=== PATIENT | female | born 1960 | race Hispanic/Latino ===

== ENCOUNTER 2017-05-13 11:44 | Emergency (ER) | payer OTHER ==
[2017-05-13 11:49] VITALS: BMI 32.4
--- NOTE | 2017-05-13 13:17 | RAD ---
HISTORY: Sepsis Patient COMPARISON: Chest radiograph dated 10/06/2009 FINDINGS: LUNGS: No active pulmonary disease. PLEURA: No significant pleural effusion identified, no pneumothorax apparent. CARDIOVASCULAR: Normal. OSSEOUS STRUCTURES: Unchanged. VISUALIZED UPPER ABDOMEN: Right upper quadrant surgical clips. OTHER FINDINGS: None. IMPRESSION: No active disease.
[2017-05-13 13:57] LABS: SQUAMOUS EPITHIAL 4 /hpf (0-5); URINE BACTERIA RARE (<OCC); URINE BILIRUBIN NEGATIVE (NEGATIVE); URINE BLOOD NEGATIVE (NEGATIVE); URINE CLARITY SLIGHTY-CLOUDY (Clear); URINE COLOR YELLOW (YELLOW); URINE GLUCOSE (UA) NEG (Normal); URINE LEUKOCYTE ESTERASE NEG Leu/uL (Negative); URINE NITRATE NEGATIVE (NEGATIVE); URINE PROTEIN NEGATIVE (NEGATIVE); URINE UROBILINOGEN 0.2-1.0 mg/dL (0.2-1.0)
[2017-05-13 15:06] LABS: BASO % 0.6 % (0.0-2.0); EOS % 0.2 % (0.0-4.0); HEMOGLOBIN 12.5 g/dL (12.0-16.0); LYMPH # 0.7 K/uL (1.0-4.3); LYMPH % 14.9 % (20.0-40.0); MEAN CORPUSCULAR HGB CONC 32.3 g/dL (33.0-37.0); MEAN PLATELET VOLUME 9.4 fl (7.2-11.7); MONO # 0.7 K/uL (0.0-0.8); MONO % 15.3 % (0.0-10.0); NEUT # 3.3 K/uL (1.8-7.0); NRBC % 0.1 % (0.0-0.0); RBC 4.32 Mil/uL (3.80-5.20); RED CELL DISTRIBUTION WIDTH 14.1 % (11.5-14.5); WHITE BLOOD COUNT 4.8 K/uL (4.8-10.8)
[2017-05-13] MEDS: Sodium Chloride 0.9% 1,000 ML IV STA (15:14)
[2017-05-13 15:21] LABS: ALB/GLOB RATIO 1.1 (1.0-2.1); ALBUMIN 4.1 g/dL (3.5-5.0); ALT/SGPT 61 U/L (9-52); AST/SGOT 37 U/L (14-36); BLOOD UREA NITROGEN 12 mg/dl (7-17); CALCIUM 9.6 mg/dL (8.4-10.2); GFR AFRICAN-AMERICAN > 60; GFR NON-AFRICAN AMERICAN > 60
--- NOTE | 2017-05-13 16:47 | ED PDOC ---
HPI: CCC, URI, Sore Throat Time Seen by Provider: 05/13/17 12:26 Chief Complaint (Nursing): Cough, Cold, Congestion Chief Complaint (Provider): upper resp. infection History Per: Patient History/Exam Limitations: no limitations Additional Complaint(s): 56yo F in ED for eval of Upper resp infection-states for past 1-2 days with fever, body aches non-productive cough headache ear pain . hx of breast CA, HTN, DM. denies foreign travel, negative for influa/b vaccination. Past Medical History Reviewed: Historical Data, Nursing Documentation, Vital Signs Vital Signs: Last Vital Signs Temp 100.2 F H 05/13/17 15:24 Pulse 87 05/13/17 15:24 Resp 16 05/13/17 15:24 BP 122/72 05/13/17 15:24 Pulse Ox 96 05/13/17 15:24 - Medical History PMH: HTN, Hyperlipidemia - Family History Family History: States: No Known Family Hx - Home Medications Home Medications: Ambulatory Orders Medication Instructions Recorded Ibuprofen [Motrin] 600 mg PO Q6 PRN #20 tab 08/23/14 Ibuprofen [Motrin] 400 mg PO Q6 #30 tab 05/13/17 Oseltamivir Phosphate [Tamiflu] 75 mg PO BID #10 capsule 05/13/17 - Allergies Allergies/Adverse Reactions: Allergies Allergy/AdvReac Type Severity Reaction Status Date / Time No Known Allergies Allergy Verified 08/23/14 09:17 Curb-65 Severity Score - CURB-65 Severity Score Confusion: No Bun >19mg/dl (>7mmol/L): No Respiratory Rate greater than/equal to 30: No Systolic BP <90 or Diastolic BP less than/equal 60mmHg: No Age >64: No Curb-65 Score: 0 Percentage 30-day mortality: 0.6% Review of Systems ROS Statement: Except As Marked, All Systems Reviewed And Found Negative Constitutional: Positive for: Fever, Chills, Malaise ENT: Positive for: Ear Pain, Nose Pain, Nose Congestion Gastrointestinal: Positive for: Abdominal Pain. Negative for: Nausea, Vomiting Physical Exam - Reviewed Nursing Documentation Reviewed: Yes Vital Signs Reviewed: Yes - Physical Exam Appears: Positive for: Non-toxic, No Acute Distress, Uncomfortable Head Exam: Positive for: ATRAUMATIC, NORMAL INSPECTION, NORMOCEPHALIC Skin: Positive for: Warm Eye Exam: Positive for: EOMI, Normal appearance, PERRL ENT: Positive for: TM Is/Are (NAD), Pharyngeal Erythema. Negative for: Tonsillar Exudate, Tonsillar Swelling Neck: Positive for: Normal, Painless ROM Cardiovascular/Chest: Positive for: Regular Rate, Rhythm Respiratory: Positive for: CNT, Normal Breath Sounds Gastrointestinal/Abdominal: Positive for: Normal Exam, Bowel Sounds, Soft. Negative for: Tenderness Extremity: Negative for: Swelling Lymphatic: Positive for: Adenopathy Neurologic/Psych: Positive for: Alert, Oriented - Laboratory Results Result Diagrams: 05/13/17 14:55 05/13/17 14:50 - ECG O2 Sat by Pulse Oximetry: 96 - Radiology X-Ray: Read By Radiologist - Progress ED Course And Treament: 05/13/17 05/13/17 05/13/17 15:00 14:55 14:50 WBC 4.8 D RBC 4.32 Hgb 12.5 Hct 38.9 MCV 90.0 D MCH 29.0 MCHC 32.3 L RDW 14.1 Plt Count 251 MPV 9.4 Neut % (Auto) 69.0 Lymph % (Auto) 14.9 L [place] % (Auto) 15.3 H Eos % (Auto) 0.2 Baso % (Auto) 0.6 Neut # 3.3 Lymph # 0.7 L [place] # 0.7 Eos # 0.0 Baso # 0.0 Sodium 138 Potassium 3.2 L Chloride 93 L Carbon Dioxide 32 H Anion Gap 16 BUN 12 Creatinine 0.9 Est GFR ( Amer) > 60 Est GFR (Non-Af Amer) > 60 Random Glucose 114 H Calcium 9.6 Total Bilirubin 0.4 AST 37 H ALT 61 H Alkaline Phosphatase 91 Total Protein 7.7 Albumin 4.1 Globulin 3.6 Albumin/Globulin Ratio 1.1 Urine Color Urine Clarity Urine pH Ur Specific [place]onson Urine Protein Urine Glucose (UA) Urine Ketones Urine Blood Urine Nitrate Urine Bilirubin Urine Urobilinogen Ur Leukocyte Esterase Urine RBC (Auto) Urine Microscopic WBC Ur Squamous Epith Cells Urine Bacteria Influenza Typ A,B (EIA) Pos for influenza a H 05/13/17 13:43 WBC RBC Hgb Hct MCV MCH MCHC RDW Plt Count MPV Neut % (Auto) Lymph % (Auto) [place] % (Auto) Eos % (Auto) Baso % (Auto) Neut # Lymph # [place] # Eos # Baso # Sodium Potassium Chloride Carbon Dioxide Anion Gap BUN Creatinine Est GFR ( Amer) Est GFR (Non-Af Amer) Random Glucose Calcium Total Bilirubin AST ALT Alkaline Phosphatase Total Protein Albumin Globulin Albumin/Globulin Ratio Urine Color Yellow Urine Clarity Slighty-cloudy Urine pH 5.0 Ur Specific [place]onson 1.012 Urine Protein Negative Urine Glucose (UA) Neg Urine Ketones Negative Urine Blood Negative Urine Nitrate Negative Urine Bilirubin Negative Urine Urobilinogen 0.2-1.0 Ur Leukocyte Esterase Neg Urine RBC (Auto) 3 Urine Microscopic WBC 1 Ur Squamous Epith Cells 4 Urine Bacteria Rare Influenza Typ A,B (EIA) Medical Decision Making Medical Decision Making: K+ is low, replaced with Kdur, INflu A+, given tamiflu fever, given motrin and IV NS bolus pt admits to improved symptoms case discussed with MD tenzin pt stable for d.c home with prompt visit to PMD Rx tamifl aund motrin Disposition - Clinical Impression Clinical Impression: Influenza A - Patient ED Disposition Is Patient to be Admitted: No Counseled Patient/Family Regarding: Studies Performed, Diagnosis, Need For Followup, Rx Given - Disposition Disposition: Routine/Home Disposition Time: 16:50 Condition: STABLE Prescriptions: Ibuprofen [Motrin] 400 mg PO Q6 #30 tab Oseltamivir Phosphate [Tamiflu] 75 mg PO BID #10 capsule Instructions: Influenza (ED)
[2017-05-13] MEDS ORDERED: Potassium Chloride 20 mEq ER Tab PO ONE (17:18)
[2017-05-13] MEDS ORDERED: Albuterol-Ipratrop 3 mg / 0.5 (3 ml) UD ONE (17:18)
[2017-05-13] MEDS: Potassium Chloride 20 mEq ER Tab PO ONE (17:20)
[2017-05-13] MEDS: Albuterol-Ipratrop 3 mg / 0.5 (3 ml) UD INH STA (17:21)
[2017-05-13 18:20] VITALS: BP 114/55; PULSE 76; RESP 18; TEMP 98.4; O2SAT 97
--- NOTE | 2017-05-14 11:05 | CARD ---
APPROVED REPORT EKG Measurement Heart [id number] <Conclusion> Normal sinus rhythm Nonspecific T wave abnormality Abnormal ECG motion artefact
== END 2017-05-13 18:19 | disposition home or self-care (01) ==
LOC: H.ER 11:44
DX: J10.1 Influenza due to other identified influenza virus with other respiratory manifestations (principal); E11.9 Type 2 diabetes mellitus without complications; E78.5 Hyperlipidemia, unspecified; I10 Essential (primary) hypertension; Z85.3 Personal history of malignant neoplasm of breast
CPT/HCPCS: 71045; 80053; 81003; 85025; 87086; 87804; 93005; 94640; 99282; J7040